=== PATIENT | female | born 1965 | race Caucasian/White ===

== ENCOUNTER → 2020-10-16 08:29 | Outpatient (CLI) | payer MEDICARE, MEDICAID, SELFPAY ==
--- NOTE | 2020-10-16 08:35 | CT_ITS ---
STUDY: CT MAXILLOFACIAL SINUSES REASON FOR EXAM: Female, 55 years old. SINUSITIS RADIATION DOSAGE (If Supplied By Facility): CTDIvol = ( 33.06 ) mGy, DLP = ( 800.79 ) mGycm TECHNIQUE: The patient was scanned in a multi detector CT scanner. High resolution axial imaging was performed without the administration of intravenous contrast material. Sagittal and coronal images were reconstructed. Individualized dose optimization techniques were used for this CT. COMPARISON: None. FINDINGS: FRONTAL SINUSES: Normal aeration, without mucosal inflammatory disease. ETHMOIDAL SINUSES: Minor mucosal thickening of the ethmoid air cells without air-fluid level. MAXILLARY SINUSES: Minor mucosal thickening in the right maxillary sinus without air-fluid level.. SPHENOIDAL SINUSES: Polypoid mucosal thickening in left sphenoid sinus without air-fluid level. There is patency of the bilateral maxillary infundibuli with normal uncinate processes, ethmoid bullae, and hiatus semilunaris. Normal bilateral middle turbinates. Normal bilateral inferior turbinates. Normal midline nasal septum. There is patency of the bilateral nasal airways. The visualized osseous structures are normal. The visualized bilateral orbital contents are normal. CT/Sinus/Facial Bone IMPRESSION: Minor right maxillary bilateral ethmoid and left sphenoid sinus disease without air-fluid levels likely chronic. Electronically Signed: Dustin Zayas MD at 22:57 EDT , Service support ,
== END ==
PROVIDERS: PCP Family Medicine; Referring Provider Otolaryngology Otolaryngology/Facial Plastic Surgery; Visit Provider Otolaryngology Otolaryngology/Facial Plastic Surgery
DX: J32.9 Chronic sinusitis, unspecified (principal)
CPT/HCPCS: 70486

== ENCOUNTER 2020-10-24 05:55 | Day surgery (SDC) | payer MEDICARE, MEDICAID, SELFPAY ==
[2017-07-23 12:04] VITALS: BMI 27.0
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
--- NOTE | 2020-10-24 | MISC_PTH ---
PATIENT: OMERO AKHTAR LOC: [facility] [place] U#:[id number] AGE/SX: 55/F ROOM: RE10/24/[address]: Dr. Mirtha Armstrong, MDDOB: 1965 BED: DIS: 10/24/2020 SPEC #: [id number] RECD: 10/24/20 13:37 STATUS: TATE SANDRA #: [id number] TAMMI: 10/24/20 00:[address]: Mirtha Armstrong DEPT: SURGICAL PATHOLOGY RECD BY: Anatoliy Fang ENTERED: 10/24/20 13:37 [facility]: Dr. Livan Kennedy MD Tissues: Labial gland, NOS Procedures: Surgery Specimen Level IV HEADER OPERATION: Labiaplasty PRE-OP DIAGNOSIS: Bilateral labial hypertrophy TISSUE SUBMITTED: Bilateral labia MICROSCOPIC DIAGNOSIS Bilateral labia, labiaplasty: Fragments of skin and underlying tissue with focal hyperkeratosis and mild chronic inflammation, clinically labial hypertrophy. SJ:breonna 10/25/2020 MICROSCOPIC DESCRIPTION Slides are reviewed. GROSS DESCRIPTION Received in fixative is one container labeled with the patient's name and designated bilateral labia. The specimen consists of three irregular fragments of light to dark deleon tissue with adherent reddish-deleon soft tissue. The fragments range in size from 1.5 to 7.5 cm. No mass lesions are identified. Art Preparator sections from all three fragments are submitted in three cassettes. / AM:breonna 10/24/20 TC:5 CPT: 87710
[2020-10-24 06:23] VITALS: BP 138/77; PULSE 77; RESP 18; TEMP 36.7; O2SAT 100; BMI 30.7
[2020-10-24] MEDS: Lactated Ringers 1,000 ML 100 ML IV (06:42)
[2020-10-24 06:54] LABS: Hematocrit 44.6 % (37-47); Hemoglobin 14.8 g/dL (12.0-15.0); Mean Corp Hgb Conc 33.2 g/dL (32-36); Mean Corpuscular Hgb 31.2 pg (27.0-32.0); Mean Corpuscular Volume 94.1 fL (81-99); Mean Platelet Vol. 9.9 fl (6.2-12.0); Platelet Count 286 K/mm3 (150-450); RBC Distribution Width CV 12.8 % (11.6-14.6); RBC Distribution Width SD 44.7 fl (35.1-43.9); Red Blood Count 4.74 M/mm3 (4.2-5.4); White Blood Count 8.9 K/mm3 (4.4-11.0)
[2020-10-24] MEDS: Lidocaine 1% /Epi 1:100 (50ml) 50 ML VIAL (07:55)
--- NOTE | 2020-10-24 08:02 | EX.PCM.DISCH ---
Discharge Instructions Diet Discharge Diet: No restrictions Activity Discharge Activity: May Shower May resume sexual activity in: 4-6 weeks Lifting Restrictions: 25 Additional Activity Instructions:: no intercourse until cleared at post op exam. no swimming and no bath tubs but you may shower. Dressing / Incision Call your doctor if your incision/area has: Continuous Slow Oozing, Sudden Increased Bleeding, Increased Pain/ Swelling, Increased Redness, Foul Smelling Discharge and Swelling at the incision site Call your doctor if you observe: Fever of 101 or Higher, Inability to urinate and Using more than 1 pad per hour Cleanse incision/area with: Soap & Water Additional Dressing/Incision Instructions:: let mild soap and water run over incision sites and dab dry. Follow Up Care Please Follow Up With: Mirtha Armstrong MD When: 2 weeks. call [phone] if you need an appointment. Test Results: Test results from this visit will be discussed in further detail at your follow-up appointment, if applicable. Discharge Plan Admission Primary Reason for Your Visit: labiaplasty Attending Provider: Mirtha Armstrong Primary Care Provider: Livan Kennedy Discharge Orders/Prescriptions Prescriptions: New oxycodone-acetaminophen [Percocet] 5-325 mg tablet 1 tab PO Q6H PRN (Reason: pain) 3 Days Qty: 7 RF: 0 No Action omeprazole 40 mg Capsule,Delayed Release(Dr/Ec) 40 mg PO DAILY RF: 0 magnesium 250 mg Tablet 250 mg PO DAILY RF: 0 loratadine [Claritin] 10 mg Tablet 10 mg PO DAILY RF: 0 cholecalciferol (vitamin D3) [Vitamin D3] 25 mcg (1,000 unit) Capsule 25 mcg PO DAILY RF: 0 Femring 0.1 mg/24 hr ring 1 vag ring VAGINAL .Q3MO RF: 0 [place] 3 Capsule 2,000 mg PO DAILY RF: 0 naproxen sodium [Aleve] 220 mg Capsule 220 mg PO DAILY RF: 0 Probiotic 3 billion cell Capsule 3,000 mmu cells PO DAILY RF: 0 Referrals / Follow Up: Livan Kennedy MD [Primary Care Provider] - Disposition Disposition (needs filled in before D/C Order can be placed): Home, Self Care
[2020-10-24 08:05] VITALS: BP 119/71; BP 138/77; PULSE 90; RESP 16; TEMP 36.7; O2SAT 99
--- NOTE | 2020-10-24 08:09 | OP.PCM_ITS ---
Problems Associated Problem List Diagnoses (1) Labial hypertrophy: Report of Operation Date of Procedure: 10/24/20 Pre-Operative Diagnosis: labial hypertrophy Post-Operative Diagnosis: same Surgery/Procedure Performed:: Bilateral labiaplasty Description of Surgical Findings:: Labia minora with hypertrophy beyond labia majora Surgeon: Mirtha Armstrong clinical pharmacologist: None Type of Anesthesia: Local and MAC Special Medications: 1% lidocaine with epinephrine Specimen's removed: bilateral labia minora Drains: none Estimated Blood Loss (mL): 10 Fluids Replaced: 700 Description of Procedure: After informed consent was obtained the patient was taken the operating room she was placed in the supine position. She was given anesthesia she was then prepped and draped in normal sterile fashion. Exam under anesthesia revealed that the labia minora extend well beyond the labia majora. At this time they were grasped with [place] and winged out. Marking pen was used to create my area of excision from the posterior fourchette to anterior aspect inferior to clitoral butler. . At this time lidocaine with epinephrine was injected. At this time curved Tejeda scissors were used cut the excess labia minora tissue. This was done first on the left side and it was sutured with 3-0 Rapide in a running fashion. This was then repeated on the patient's right side making sure that the labia appeared to be equal. Excellent hemostasis was appreciated. Instrument lap and needle count were correct x2. Procedure was deemed complete and successful.Tissue sent to pathology for evaluation. Grafts/Implants Used: none Procedure Start Time: 07:36 Procedure Stop Time: 07:54 Complications none Admit VTE Documentation VTE Present on Admission: Yes VTE Mechan Device Prophylaxis: SCD's VTE Pharm Prophylaxis ordered?: No
[2020-10-24 08:10] VITALS: BP 123/76; BP 138/77; PULSE 90; RESP 16; O2SAT 95
[2020-10-24 08:15] VITALS: BP 116/69; BP 138/77; PULSE 88; RESP 14; O2SAT 95
[2020-10-24 08:20] VITALS: BP 110/72; BP 138/77; PULSE 85; RESP 16; TEMP 36.8; O2SAT 95
[2020-10-24 09:14] VITALS: BP 138/77; BP 141/71; PULSE 88; RESP 18; TEMP 36.3; O2SAT 98
== END 2020-10-24 09:16 | disposition home or self-care (01) ==
LOC: SDC 05:56 → AC 05:58
PROVIDERS: PCP Family Medicine; Referring Provider Obstetrics & Gynecology; Visit Provider Obstetrics & Gynecology
PROC: (CPT 56620; principal; 2020-10-24 07:15)
DX: N90.60 Unspecified hypertrophy of vulva (principal); M19.90 Unspecified osteoarthritis, unspecified site; E11.9 Type 2 diabetes mellitus without complications; I10 Essential (primary) hypertension; E78.5 Hyperlipidemia, unspecified; J45.909 Unspecified asthma, uncomplicated; Z79.4 Long term (current) use of insulin; Z79.51 Long term (current) use of inhaled steroids; Z79.899 Other long term (current) drug therapy
CPT/HCPCS: 00906; 56620; 85027; 88305; J7120; J2405

== ENCOUNTER → 2020-11-22 13:00 | Outpatient (CLI) | payer MEDICARE, MEDICAID, SELFPAY ==
--- NOTE | 2020-11-22 13:01 | EKG12_ITS ---
Test Reason : PRE OP Blood Pressure : / mmHG Vent. Rate : 101 BPM Atrial Rate : 101 BPM P-R Int : 136 ms QRS Dur : 092 ms QT Int : 310 ms P-R-T Axes : 058 042 268 degrees QTc Int : 401 ms Sinus tachycardia Nonspecific ST and T wave abnormality Abnormal ECG Confirmed by JUAN DIEGO WHARTON, JACK ([id number]), news video editor RYDER PERERA ([id number]) on 11/25/2020 8:22:11 AM Referred By: Edin Hyman Confirmed By:JACK ADAMSON MD
== END ==
PROVIDERS: PCP Family Medicine; Referring Provider Otolaryngology; Visit Provider Otolaryngology
DX: Z01.818 Encounter for other preprocedural examination (principal)
CPT/HCPCS: 93005

== ENCOUNTER → 2020-11-25 12:15 | Outpatient (CLI) | payer MEDICARE, MEDICAID, SELFPAY ==
[2020-11-25 12:53] LABS: Hematocrit 43.3 % (37-47); Hemoglobin 14.1 g/dL (12.0-15.0); Mean Corp Hgb Conc 32.6 g/dL (32-36); Mean Corpuscular Hgb 30.5 pg (27.0-32.0); Mean Corpuscular Volume 93.7 fL (81-99); Mean Platelet Vol. 9.8 fl (6.2-12.0); Platelet Count 316 K/mm3 (150-450); RBC Distribution Width CV 12.5 % (11.6-14.6); Red Blood Count 4.62 M/mm3 (4.2-5.4); White Blood Count 7.2 K/mm3 (4.4-11.0)
[2020-11-25 13:12] LABS: Anion Gap 5 (5-15); BUN 11 mg/dL (7-18); BUN/Creat Ratio 16.7 RATIO (10-20); Calcium,Total 9.2 mg/dL (8.5-10.1); Chloride 103 mmol/L (98-107); Creatinine, Serum 0.66 mg/dL (0.55-1.02); EST Glomerular Filtration Rate 99 mL/min (>60); Est Glom Filt Rate - Afr Amer 120 mL/min (>60); Glucose 93 mg/dL (74-106); Potassium 4.4 mmol/L (3.5-5.1); Sodium Level 137 mmol/L (136-145)
== END ==
PROVIDERS: PCP Family Medicine; Referring Provider Otolaryngology; Visit Provider Otolaryngology
DX: Z01.812 Encounter for preprocedural laboratory examination (principal); Z20.822 Contact with and (suspected) exposure to COVID-19
CPT/HCPCS: 36415; 80048; 85027; 87635; U0005; U0003

== ENCOUNTER → 2020-11-26 | Outpatient (CLI) | payer MEDICARE, MEDICAID, SELFPAY ==
--- NOTE | 2020-11-26 08:00 | NASAL_PTH ---
PATIENT: OMERO AKHTAR [facility]: [facility] U#:[id number] AGE/SX: 55/F ROOM: RE11/26/[address]: Dr. Edin Hyman MD : 1965 BED: DIS: 11/26/2020 SPEC #: [id number] RECD: 11/26/20 14:58 STATUS: TATE REInge #: [id number] TAMMI: 11/26/20 08:[address]: Edin Hyman DEPT: SURGICAL PATHOLOGY RECD BY: Areli Tellez ENTERED: 11/27/20 09:23 SP TYPE: NASAL SPEC OTHR DR: Dr. Livan Kennedy MD [facility] Tissues: A - Nasal septum, NOS B - Nasal septum, NOS C - Nasal septum, NOS Procedures: Decalcification bone/plaque Surgery Specimen Level III HEADER OPERATION: Septoplasty, functional endoscopic sinus surgery, turbinate cautery, bilateral ethmoidectomy, bilateral maxillary antrostomy PRE-OP DIAGNOSIS: Nasal congestion, deviated septum, chronic sinusitis TISSUE SUBMITTED: A ? Septum, B ? Left sinus contents, C ? Right sinus contents MICROSCOPIC DIAGNOSIS A. Nasal septum, septoplasty: Fragments of benign cartilage (clinically deviated septum). B. Left sinus contents, curettings: Consistent with chronic sinusitis. Benign fragments of bone. C. Right sinus contents, curettings: Consistent with chronic sinusitis. Benign fragments of bone. AM:breonna 12/02/2020 MICROSCOPIC DESCRIPTION Slides are reviewed. GROSS DESCRIPTION A - Received in fixative is one container labeled with the patient's name and designated septum. The specimen consists of two pieces of cartilage and bone measuring in aggregate 1.5 x 1 x 0.3 cm. The entire specimen is submitted in one cassette after decalcification. B - Received in fixative is one container labeled with the patient's name and designated left sinus contents. The specimen consists of multiple irregular fragments of deleon soft tissue mixed with fragments of bone that in aggregate measure 1.5 x 1 x 0.2 cm. The specimen is totally submitted in one cassette after decalcification. C - Received in fixative is one container labeled with the patient's name and designated right sinus contents. The specimen consists of multiple irregular fragments of deleon soft tissue mixed with fragments of bone that in aggregate measure 1.5 x 1 x 0.3 cm. The specimen is totally submitted in one cassette after decalcification. / SJ:breonna 11/27/20 TC:3 CPT: 46130 x3, 53789 x3
== END | disposition home or self-care (01) ==
LOC: LABSPEC 16:36
PROVIDERS: PCP Family Medicine; Referring Provider Otolaryngology; Visit Provider Otolaryngology
DX: J34.2 Deviated nasal septum (principal); R09.81 Nasal congestion; J32.9 Chronic sinusitis, unspecified
CPT/HCPCS: 88304; 88311

== ENCOUNTER 2021-12-09 12:37 | Emergency (ER) | payer MEDICARE, MEDICAID, SELFPAY ==
[2021-12-09 12:38] VITALS: BP 196/95; PULSE 109; RESP 18; TEMP 36.5; O2SAT 96; BMI 31.1
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
[2021-12-09] MEDS: Ibuprofen 600 MG Tablet PO (13:22)
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
--- NOTE | 2021-12-09 14:27 | ED.RN ---
in waiting room being disrespectful and demanding.
[2021-12-09] MEDS: Ketorolac 15 MG/ML Vial IV (14:28)
== END 2021-12-09 14:33 | disposition home or self-care (01) ==
PROVIDERS: Emergency Provider Emergency Medicine; PCP Family Medicine; Visit Provider Emergency Medicine
DX: S80.01XA Contusion of right knee, initial encounter (principal); S29.019A Strain of muscle and tendon of unspecified wall of thorax, initial encounter; S16.1XXA Strain of muscle, fascia and tendon at neck level, initial encounter; V49.40XA Driver injured in collision with unspecified motor vehicles in traffic accident, initial encounter
CPT/HCPCS: 72125; 73564; 96374; 99284

== ENCOUNTER → 2022-11-02 | Outpatient (CLI) | payer MEDICARE, MEDICAID, SELFPAY ==
[2022-11-02 17:14] LABS: Absolute Lymphocyte Count 3.85 X10^3/uL (0.83-4.51); Absolute Neutrophil Count 3.5 X10^3/uL (2.0-7.7); Basophil# 0.02 X10^3/uL; Basophil% 0.2 % (0-1); Eosinophil# 0.16 X10^3/uL; Eosinophils% 1.9 % (0-5); Hematocrit 44.8 % (37-47); Hemoglobin 14.8 g/dL (12.0-15.0); Lymphocyte # 3.85 X10^3/ul (0.83-4.51); Lymphocyte % 46.4 % (19-41); Mean Corpuscular Hgb 30.8 pg (27.0-32.0); Mean Corpuscular Volume 93.3 fL (81-99); Monocyte# 0.71 X10^3/uL; Monocyte% 8.6 % (0-10); NRBC Flagged by Analyzer 0 % (0-5); Neutrophil # 3.53 X10^3/uL (2.7-7.7); Neutrophil % 42.7 % (47-70); Platelet Count 303 K/mm3 (150-450); RBC Distribution Width CV 12.3 % (11.6-14.6); RBC Distribution Width SD 42.7 fl (35.1-43.9); White Blood Count 8.3 K/mm3 (4.4-11.0)
[2022-11-02 17:50] LABS: ALB/GLOB Ratio 0.9 RATIO (0.9-2.4); AST(SGOT) 20 U/L (15-37); Alanine Aminotransfer ALT/SGPT 27 U/L (13-56); Albumin, Serum 3.8 g/dL (3.2-5.0); Alkaline Phosphatase 67 U/L (45-117); Anion Gap 6 (5-15); BUN 17 mg/dL (7-18); BUN/Creat Ratio 21.4 RATIO (10-20); Calcium,Total 9.2 mg/dL (8.5-10.1); Chloride 105 mmol/L (98-107); Cholesterol 231 mg/dL (200); EST Glomerular Filtration Rate 79 mL/min (>60); Est Glom Filt Rate - Afr Amer 96 mL/min (>60); Globulin 4.2 g/dL (2.2-4.2); Glucose 88 mg/dL (74-106); High Density Lipoprotein 60 mg/dL; Potassium 4.2 mmol/L (3.5-5.1); Sodium Level 139 mmol/L (136-145); Thyroid Stim Hormone (TSH) 2.33 uIU/mL (0.358-3.74); Triglycerides 224 mg/dL; Very Low Density Lipoprotein 45 mg/dL (5-40)
[2022-11-02 17:52] LABS: Hemoglobin A1c 5.4 % (3.8-5.6)
[2022-11-02 18:30] LABS: Hepatitis C Antibody Non-Reactive (Nonreactive); Vitamin D,25 Hydroxy 35.1 ng/mL
== END | disposition home or self-care (01) ==
PROVIDERS: PCP Family Medicine; Visit Provider Family Medicine Geriatric Medicine
DX: E55.9 Vitamin D deficiency, unspecified (principal); R53.83 Other fatigue
CPT/HCPCS: 36415; 80053; 80061; 82306; 83036; 84443; 85025; 86803

== ENCOUNTER → 2023-04-29 | Outpatient (CLI) | payer MEDICARE, SELFPAY ==
--- OUTSIDE RECORDS SUMMARY | 2023-04-29 15:34 | XMS RPT_ITS | CCD ---
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 year or 1 fall with injury or currently using an Ambulatory Assistive Device (Walker, Cane, Wheelchair, Crutches, etc.)? No PATIENT GENDER DATA: Female. status: : No status: NO. PATIENT RELEVANT IMPLANT DATA REVIEWED: Not Applicable RADIOLOGY DEPARTMENT: General X-ray: Exam(s) Completed: Lower Extremity X-Ray(s): Knee, AP / Lat / Tunne / Merchant Right and Wt. Bearing PERIPHERAL IV DATA: Not applicable SIGNED BY: RT Laly(R) June 27, 2021 1:48 PM documented in this encounter [facility] documented as of this encounter (statuses as of 06/25/2021) [facility] History of Past illness Narrative* Problem Noted Date Resolved Date UTI (lower urinary tract infection) 08/13/2014 09/30/2016 Lower urinary tract symptoms (LUTS) 08/13/2014 09/30/2016 Recurrent urinary tract infection 08/13/2014 09/30/2016 Recurrent kidney stones 08/13/2014 10/01/19 17 Fissure in ano 02/08/2013 09/30/2016 Pelvic cramping 05/18/2012 09/30/2016 Abdominal bloating 05/18/2012 09/30/2016 Cervicalgia 08/27/2010 09/30/2016 Headache(784.0) 08/27/2010 09/30/2016 Knee pain 08/27/2010 09/30/2016 Nonallopathic lesion of pelv ic region, not elsewhere classified 11/01/2008 09/30/2016 Acute cystitis 12/23/2006 09/30/2016 documented as of this encounter (statuses as of 06/27/2021) [facility] of Past illness Narrative* Problem Noted Date Resolved Date UTI (lower urinary tract infection) 08/13/2014 09/30/2016 Lower urinary tract symptoms (LUTS) 08/13/2014 09/30/2016 Recurrent urinary tract infection 08/13/2014 09/30/2016 Recurrent kidney stones 08/13/2014 10/01/19 17 Fissure in ano 02/08/2013 09/30/2016 Pelvic cramping 05/18/2012 09/30/2016 Abdominal bloating 05/18/2012 09/30/2016 Cervicalgia 08/27/2010 09/30/2016 Headache(784.0) 08/27/2010 09/30/2016 Knee pain 08/27/2010 09/30/2016 Nonallopathic lesion of pelv ic region, not elsewhere classified 11/01/2008 09/30/2016 Acute cystitis 12/23/2006 09/30/2016 documented as of this encounter (statuses as of 07/01/2021) [facility] of Past illness Narrative* Problem Noted Date Resolved Date UTI (lower urinary tract infection) 08/13/2014 09/30/2016 Lower urinary tract symptoms (LUTS) 08/13/2014 09/30/2016 Recurrent urinary tract infection 08/13/2014 09/30/2016 Recurrent kidney stones 08/13/2014 10/01/19 17 Fissure in ano 02/08/2013 09/30/2016 Pelvic cramping 05/18/2012 09/30/2016 Abdominal bloating 05/18/2012 09/30/2016 Cervicalgia 08/27/2010 09/30/2016 Headache(784.0) 08/27/2010 09/30/2016 Knee pain 08/27/2010 09/30/2016 Nonallopathic lesion of pelv ic region, not elsewhere classified 11/01/2008 09/30/2016 Acute cystitis 12/23/2006 09/30/2016 documented as of this encounter (statuses as of 06/28/2021) [facility] of [facility] illness Narrative* Problem Noted Date Resolved Date UTI (lower urinary tract infection) 08/13/2014 09/30/2016 Lower urinary tract symptoms (LUTS) 08/13/2014 09/30/2016 Recurrent urinary tract infection 08/13/2014 09/30/2016 Recurrent kidney stones 08/13/2014 10/01/19 17 Fissure in ano 02/08/2013 09/30/2016 Pelvic cramping 05/18/2012 09/30/2016 Abdominal bloating 05/18/2012 09/30/2016 Cervicalgia 08/27/2010 09/30/2016 Headache(784.0) 08/27/2010 09/30/2016 Knee pain 08/27/2010 09/30/2016 Nonallopathic lesion of pelv ic region, not elsewhere classified 11/01/2008 09/30/2016 Acute cystitis 12/23/2006 09/30/2016 documented as of this encounter (statuses as of 11/03/2021) [facility] of [facility] illness Narrative* Problem Noted Date Resolved Date UTI (lower urinary tract infection) 08/13/2014 09/30/2016 Lower urinary tract symptoms (LUTS) 08/13/2014 09/30/2016 Recurrent urinary tract infection 08/13/2014 09/30/2016 Recurrent kidney stones 08/13/2014 10/01/19 17 Fissure in ano 02/08/2013 09/30/2016 Pelvic cramping 05/18/2012 09/30/2016 Abdominal bloating 05/18/2012 09/30/2016 Cervicalgia 08/27/2010 09/30/2016 Headache(784.0) 08/27/2010 09/30/2016 Knee pain 08/27/2010 09/30/2016 Nonallopathic lesion of pelv ic region, not elsewhere classified 11/01/2008 09/30/2016 Acute cystitis 12/23/2006 09/30/2016 documented as of this encounter (statuses as of 11/04/2021) [facility] of Past illness Narrative* Problem Noted Date Resolved Date UTI (lower urinary tract infection) 08/13/2014 09/30/2016 Lower urinary tract symptoms (LUTS) 08/13/2014 09/30/2016 Recurrent urinary tract infection 08/13/2014 09/30/2016 Recurrent kidney stones 08/13/2014 10/01/19 17 Fissure in ano 02/08/2013 09/30/2016 Pelvic cramping 05/18/2012 09/30/2016 Abdominal bloating 05/18/2012 09/30/2016 Cervicalgia 08/27/2010 09/30/2016 Headache(784.0) 08/27/2010 09/30/2016 Knee pain 08/27/2010 09/30/2016 Nonallopathic lesion of pelv ic region, not elsewhere classified 11/01/2008 09/30/2016 Acute cystitis 12/23/2006 09/30/2016 documented as of this encounter (statuses as of 11/10/2021) [facility] of [facility] illness Narrative* Problem Noted Date Resolved Date UTI (lower urinary tract infection) 08/13/2014 09/30/2016 Lower urinary tract symptoms (LUTS) 08/13/2014 09/30/2016 Recurrent urinary tract infection 08/13/2014 09/30/2016 Recurrent kidney stones 08/13/2014 10/01/19 17 Fissure in ano 02/08/2013 09/30/2016 Pelvic cramping 05/18/2012 09/30/2016 Abdominal bloating 05/18/2012 09/30/2016 Cervicalgia 08/27/2010 09/30/2016 Headache(784.0) 08/27/2010 09/30/2016 Knee pain 08/27/2010 09/30/2016 Nonallopathic lesion of pelv ic region, not elsewhere classified 11/01/2008 09/30/2016 Acute cystitis 12/23/2006 09/30/2016 documented as of this encounter (statuses as of 12/10/2021) [facility] of Past illness Narrative* Problem Noted Date Resolved Date UTI (lower urinary tract infection) 08/13/2014 09/30/2016 Lower urinary tract symptoms (LUTS) 08/13/2014 09/30/2016 Recurrent urinary tract infection 08/13/2014 09/30/2016 Recurrent kidney stones 08/13/2014 10/01/19 17 Fissure in ano 02/08/2013 09/30/2016 Pelvic cramping 05/18/2012 09/30/2016 Abdominal bloating 05/18/2012 09/30/2016 Cervicalgia 08/27/2010 09/30/2016 Headache(784.0) 08/27/2010 09/30/2016 Knee pain 08/27/2010 09/30/2016 Nonallopathic lesion of pelv ic region, not elsewhere classified 11/01/2008 09/30/2016 Acute cystitis 12/23/2006 09/30/2016 documented as of this encounter (statuses as of 12/14/2021) [facility] of Past illness Narrative* Problem Noted Date Resolved Date UTI (lower urinary tract infection) 08/13/2014 09/30/2016 Lower urinary tract symptoms (LUTS) 08/13/2014 09/30/2016 Recurrent urinary tract infection 08/13/2014 09/30/2016 Recurrent kidney stones 08/13/2014 10/01/19 17 Fissure in ano 02/08/2013 09/30/2016 Pelvic cramping 05/18/2012 09/30/2016 Abdominal bloating 05/18/2012 09/30/2016 Cervicalgia 08/27/2010 09/30/2016 Headache(784.0) 08/27/2010 09/30/2016 Knee pain 08/27/2010 09/30/2016 Nonallopathic lesion of pelv ic region, not elsewhere classified 11/01/2008 09/30/2016 Acute cystitis 12/23/2006 09/30/2016 documented as of this encounter (statuses as of 12/15/2021) [facility] illness Narrative* Problem Noted Date Resolved Date UTI (lower urinary tract infection) 08/13/2014 09/30/2016 Lower urinary tract symptoms (LUTS) 08/13/2014 09/30/2016 Recurrent urinary tract infection 08/13/2014 09/30/2016 Recurrent kidney stones 08/13/2014 10/01/19 17 Fissure in ano 02/08/2013 09/30/2016 Pelvic cramping 05/18/2012 09/30/2016 Abdominal bloating 05/18/2012 09/30/2016 Cervicalgia 08/27/2010 09/30/2016 Headache(784.0) 08/27/2010 09/30/2016 Knee pain 08/27/2010 09/30/2016 Nonallopathic lesion of pelv ic region, not elsewhere classified 11/01/2008 09/30/2016 Acute cystitis 12/23/2006 09/30/2016 documented as of this encounter (statuses as of 12/18/2021) [facility] of [facility] illness Narrative* Problem Noted Date Resolved Date UTI (lower urinary tract infection) 08/13/2014 09/30/2016 Lower urinary tract symptoms (LUTS) 08/13/2014 09/30/2016 Recurrent urinary tract infection 08/13/2014 09/30/2016 Recurrent kidney stones 08/13/2014 10/01/19 17 Fissure in ano 02/08/2013 09/30/2016 Pelvic cramping 05/18/2012 09/30/2016 Abdominal bloating 05/18/2012 09/30/2016 Cervicalgia 08/27/2010 09/30/2016 Headache(784.0) 08/27/2010 09/30/2016 Knee pain 08/27/2010 09/30/2016 Nonallopathic lesion of pelv ic region, not elsewhere classified 11/01/2008 09/30/2016 Acute cystitis 12/23/2006 09/30/2016 documented as of this encounter (statuses as of 12/22/2021) [facility] of Past illness Narrative* Problem Noted Date Resolved Date UTI (lower urinary tract infection) 08/13/2014 09/30/2016 Lower urinary tract symptoms (LUTS) 08/13/2014 09/30/2016 Recurrent urinary tract infection 08/13/2014 09/30/2016 Recurrent kidney stones 08/13/2014 10/01/19 17 Fissure in ano 02/08/2013 09/30/2016 Pelvic cramping 05/18/2012 09/30/2016 Abdominal bloating 05/18/2012 09/30/2016 Cervicalgia 08/27/2010 09/30/2016 Headache(784.0) 08/27/2010 09/30/2016 Knee pain 08/27/2010 09/30/2016 Nonallopathic lesion of pelv ic region, not elsewhere classified 11/01/2008 09/30/2016 Acute cystitis 12/23/2006 09/30/2016 documented as of this encounter (statuses as of 12/26/2021) [facility] of Past illness Narrative* Problem Noted Date Resolved Date UTI (lower urinary tract infection) 08/13/2014 09/30/2016 Lower urinary tract symptoms (LUTS) 08/13/2014 09/30/2016 Recurrent urinary tract infection 08/13/2014 09/30/2016 Recurrent kidney stones 08/13/2014 10/01/19 17 Fissure in ano 02/08/2013 09/30/2016 Pelvic cramping 05/18/2012 09/30/2016 Abdominal bloating 05/18/2012 09/30/2016 Cervicalgia 08/27/2010 09/30/2016 Headache(784.0) 08/27/2010 09/30/2016 Knee pain 08/27/2010 09/30/2016 Nonallopathic lesion of pelv ic region, not elsewhere classified 11/01/2008 09/30/2016 Acute cystitis 12/23/2006 09/30/2016 documented as of this encounter (statuses as of 12/26/2021) [facility] illness Narrative* Problem Noted Date Resolved Date UTI (lower urinary tract infection) 08/13/2014 09/30/2016 Lower urinary tract symptoms (LUTS) 08/13/2014 09/30/2016 Recurrent urinary tract infection 08/13/2014 09/30/2016 Recurrent kidney stones 08/13/2014 10/01/19 17 Fissure in ano 02/08/2013 09/30/2016 Pelvic cramping 05/18/2012 09/30/2016 Abdominal bloating 05/18/2012 09/30/2016 Cervicalgia 08/27/2010 09/30/2016 Headache(784.0) 08/27/2010 09/30/2016 Knee pain 08/27/2010 09/30/2016 Nonallopathic lesion of pelv ic region, not elsewhere classified 11/01/2008 09/30/2016 Acute cystitis 12/23/2006 09/30/2016 documented as of this encounter (statuses as of 01/06/2022) [facility] illness Narrative* Problem Noted Date Resolved Date UTI (lower urinary tract infection) 08/13/2014 09/30/2016 Lower urinary tract symptoms (LUTS) 08/13/2014 09/30/2016 Recurrent urinary tract infection 08/13/2014 09/30/2016 Recurrent kidney stones 08/13/2014 10/01/19 17 Fissure in ano 02/08/2013 09/30/2016 Pelvic cramping 05/18/2012 09/30/2016 Abdominal bloating 05/18/2012 09/30/2016 Cervicalgia 08/27/2010 09/30/2016 Headache(784.0) 08/27/2010 09/30/2016 Knee pain 08/27/2010 09/30/2016 Nonallopathic lesion of pelv ic region, not elsewhere classified 11/01/2008 09/30/2016 Acute cystitis 12/23/2006 09/30/2016 documented as of this encounter (statuses as of 01/12/2022) [facility] of [facility] illness Narrative* Problem Noted Date Resolved Date UTI (lower urinary tract infection) 08/13/2014 09/30/2016 Lower urinary tract symptoms (LUTS) 08/13/2014 09/30/2016 Recurrent urinary tract infection 08/13/2014 09/30/2016 Recurrent kidney stones 08/13/2014 10/01/19 17 Fissure in ano 02/08/2013 09/30/2016 Pelvic cramping 05/18/2012 09/30/2016 Abdominal bloating 05/18/2012 09/30/2016 Cervicalgia 08/27/2010 09/30/2016 Headache(784.0) 08/27/2010 09/30/2016 Knee pain 08/27/2010 09/30/2016 Nonallopathic lesion of pelv ic region, not elsewhere classified 11/01/2008 09/30/2016 Acute cystitis 12/23/2006 09/30/2016 documented as of this encounter (statuses as of 01/19/2022) [facility] Narrative* Problem Noted Date Resolved Date UTI (lower urinary tract infection) 08/13/2014 09/30/2016 Lower urinary tract symptoms (LUTS) 08/13/2014 09/30/2016 Recurrent urinary tract infection 08/13/2014 09/30/2016 Recurrent kidney stones 08/13/2014 10/01/19 17 Fissure in ano 02/08/2013 09/30/2016 Pelvic cramping 05/18/2012 09/30/2016 Abdominal bloating 05/18/2012 09/30/2016 Cervicalgia 08/27/2010 09/30/2016 Headache(784.0) 08/27/2010 09/30/2016 Knee pain 08/27/2010 09/30/2016 Nonallopathic lesion of pelv ic region, not elsewhere classified 11/01/2008 09/30/2016 Acute cystitis 12/23/2006 09/30/2016 documented as of this encounter (statuses as of 01/20/2022) [facility] Narrative* Problem Noted Date Resolved Date UTI (lower urinary tract infection) 08/13/2014 09/30/2016 Lower urinary tract symptoms (LUTS) 08/13/2014 09/30/2016 Recurrent urinary tract infection 08/13/2014 09/30/2016 Recurrent kidney stones 08/13/2014 10/01/19 17 Fissure in ano 02/08/2013 09/30/2016 Pelvic cramping 05/18/2012 09/30/2016 Abdominal bloating 05/18/2012 09/30/2016 Cervicalgia 08/27/2010 09/30/2016 Headache(784.0) 08/27/2010 09/30/2016 Knee pain 08/27/2010 09/30/2016 Nonallopathic lesion of pelv ic region, not elsewhere classified 11/01/2008 09/30/2016 Acute cystitis 12/23/2006 09/30/2016 documented as of this encounter (statuses as of 01/27/2022) [facility] illness Narrative* Problem Noted Date Resolved Date UTI (lower urinary tract infection) 08/13/2014 09/30/2016 Lower urinary tract symptoms (LUTS) 08/13/2014 09/30/2016 Recurrent urinary tract infection 08/13/2014 09/30/2016 Recurrent kidney stones 08/13/2014 10/01/19 17 Fissure in ano 02/08/2013 09/30/2016 Pelvic cramping 05/18/2012 09/30/2016 Abdominal bloating 05/18/2012 09/30/2016 Cervicalgia 08/27/2010 09/30/2016 Headache(784.0) 08/27/2010 09/30/2016 Knee pain 08/27/2010 09/30/2016 Nonallopathic lesion of pelv ic region, not elsewhere classified 11/01/2008 09/30/2016 Acute cystitis 12/23/2006 09/30/2016 documented as of this encounter (statuses as of 01/28/2022) [facility] Narrative* Problem Noted Date Resolved Date UTI (lower urinary tract infection) 08/13/2014 09/30/2016 Lower urinary tract symptoms (LUTS) 08/13/2014 09/30/2016 Recurrent urinary tract infection 08/13/2014 09/30/2016 Recurrent kidney stones 08/13/2014 10/01/19 17 Fissure in ano 02/08/2013 09/30/2016 Pelvic cramping 05/18/2012 09/30/2016 Abdominal bloating 05/18/2012 09/30/2016 Cervicalgia 08/27/2010 09/30/2016 Headache(784.0) 08/27/2010 09/30/2016 Knee pain 08/27/2010 09/30/2016 Nonallopathic lesion of pelv ic region, not elsewhere classified 11/01/2008 09/30/2016 Acute cystitis 12/23/2006 09/30/2016 documented as of this encounter (statuses as of 01/30/2022) [facility] illness Narrative* Problem Noted Date Resolved Date UTI (lower urinary tract infection) 08/13/2014 09/30/2016 Lower urinary tract symptoms (LUTS) 08/13/2014 09/30/2016 Recurrent urinary tract infection 08/13/2014 09/30/2016 Recurrent kidney stones 08/13/2014 10/01/19 17 Fissure in ano 02/08/2013 09/30/2016 Pelvic cramping 05/18/2012 09/30/2016 Abdominal bloating 05/18/2012 09/30/2016 Cervicalgia 08/27/2010 09/30/2016 Headache(784.0) 08/27/2010 09/30/2016 Knee pain 08/27/2010 09/30/2016 Nonallopathic lesion of pelv ic region, not elsewhere classified 11/01/2008 09/30/2016 Acute cystitis 12/23/2006 09/30/2016 documented as of this encounter (statuses as of 02/06/2022) [facility] Narrative* Problem Noted Date Resolved Date UTI (lower urinary tract infection) 08/13/2014 09/30/2016 Lower urinary tract symptoms (LUTS) 08/13/2014 09/30/2016 Recurrent urinary tract infection 08/13/2014 09/30/2016 Recurrent kidney stones 08/13/2014 10/01/19 17 Fissure in ano 02/08/2013 09/30/2016 Pelvic cramping 05/18/2012 09/30/2016 Abdominal bloating 05/18/2012 09/30/2016 Cervicalgia 08/27/2010 09/30/2016 Headache(784.0) 08/27/2010 09/30/2016 Knee pain 08/27/2010 09/30/2016 Nonallopathic lesion of pelv ic region, not elsewhere classified 11/01/2008 09/30/2016 Acute cystitis 12/23/2006 09/30/2016 documented as of this encounter (statuses as of 02/11/2022) [facility] of Past illness Narrative* Problem Noted Date Resolved Date UTI (lower urinary tract infection) 08/13/2014 09/30/2016 Lower urinary tract symptoms (LUTS) 08/13/2014 09/30/2016 Recurrent urinary tract infection 08/13/2014 09/30/2016 Recurrent kidney stones 08/13/2014 10/01/19 17 Fissure in ano 02/08/2013 09/30/2016 Pelvic cramping 05/18/2012 09/30/2016 Abdominal bloating 05/18/2012 09/30/2016 Cervicalgia 08/27/2010 09/30/2016 Headache(784.0) 08/27/2010 09/30/2016 Knee pain 08/27/2010 09/30/2016 Nonallopathic lesion of pelv ic region, not elsewhere classified 11/01/2008 09/30/2016 Acute cystitis 12/23/2006 09/30/2016 documented as of this encounter (statuses as of 02/17/2022) [facility] History of Past illness Narrative* Problem Noted Date Resolved Date UTI (lower urinary tract infection) 08/13/2014 09/30/2016 Lower urinary tract symptoms (LUTS) 08/13/2014 09/30/2016 Recurrent urinary tract infection 08/13/2014 09/30/2016 Recurrent kidney stones 08/13/2014 10/01/19 17 Fissure in ano 02/08/2013 09/30/2016 Pelvic cramping 05/18/2012 09/30/2016 Abdominal bloating 05/18/2012 09/30/2016 Cervicalgia 08/27/2010 09/30/2016 Headache(784.0) 08/27/2010 09/30/2016 Knee pain 08/27/2010 09/30/2016 Nonallopathic lesion of pelv ic region, not elsewhere classified 11/01/2008 09/30/2016 Acute cystitis 12/23/2006 09/30/2016 documented as of this encounter (statuses as of 02/18/2022) [facility] History of Past illness Narrative* Problem Noted Date Resolved Date UTI (lower urinary tract infection) 08/13/2014 09/30/2016 Lower urinary tract symptoms (LUTS) 08/13/2014 09/30/2016 Recurrent urinary tract infection 08/13/2014 09/30/2016 Recurrent kidney stones 08/13/2014 10/01/19 17 Fissure in ano 02/08/2013 09/30/2016 Pelvic cramping 05/18/2012 09/30/2016 Abdominal bloating 05/18/2012 09/30/2016 Cervicalgia 08/27/2010 09/30/2016 Headache(784.0) 08/27/2010 09/30/2016 Knee pain 08/27/2010 09/30/2016 Nonallopathic lesion of pelv ic region, not elsewhere classified 11/01/2008 09/30/2016 Acute cystitis 12/23/2006 09/30/2016 documented as of this encounter (statuses as of 02/24/2022) [facility] History of Past illness Narrative* Problem Noted Date Resolved Date UTI (lower urinary tract infection) 08/13/2014 09/30/2016 Lower urinary tract symptoms (LUTS) 08/13/2014 09/30/2016 Recurrent urinary tract infection 08/13/2014 09/30/2016 Recurrent kidney stones 08/13/2014 10/01/19 17 Fissure in ano 02/08/2013 09/30/2016 Pelvic cramping 05/18/2012 09/30/2016 Abdominal bloating 05/18/2012 09/30/2016 Cervicalgia 08/27/2010 09/30/2016 Headache(784.0) 08/27/2010 09/30/2016 Knee pain 08/27/2010 09/30/2016 Nonallopathic lesion of pelv ic region, not elsewhere classified 11/01/2008 09/30/2016 Acute cystitis 12/23/2006 09/30/2016 documented as of this encounter (statuses as of 02/24/2022) [facility] History of Past illness Narrative* Problem Noted Date Resolved Date UTI (lower urinary tract infection) 08/13/2014 09/30/2016 Lower urinary tract symptoms (LUTS) 08/13/2014 09/30/2016 Recurrent urinary tract infection 08/13/2014 09/30/2016 Recurrent kidney stones 08/13/2014 10/01/19 17 Fissure in ano 02/08/2013 09/30/2016 Pelvic cramping 05/18/2012 09/30/2016 Abdominal bloating 05/18/2012 09/30/2016 Cervicalgia 08/27/2010 09/30/2016 Headache(784.0) 08/27/2010 09/30/2016 Knee pain 08/27/2010 09/30/2016 Nonallopathic lesion of pelv ic region, not elsewhere classified 11/01/2008 09/30/2016 Acute cystitis 12/23/2006 09/30/2016 documented as of this encounter (statuses as of 02/24/2022) [facility] History of Past illness Narrative* Problem Noted Date Resolved Date UTI (lower urinary tract infection) 08/13/2014 09/30/2016 Lower urinary tract symptoms (LUTS) 08/13/2014 09/30/2016 Recurrent urinary tract infection 08/13/2014 09/30/2016 Recurrent kidney stones 08/13/2014 10/01/19 17 Fissure in ano 02/08/2013 09/30/2016 Pelvic cramping 05/18/2012 09/30/2016 Abdominal bloating 05/18/2012 09/30/2016 Cervicalgia 08/27/2010 09/30/2016 Headache(784.0) 08/27/2010 09/30/2016 Knee pain 08/27/2010 09/30/2016 Nonallopathic lesion of pelv ic region, not elsewhere classified 11/01/2008 09/30/2016 Acute cystitis 12/23/2006 09/30/2016 documented as of this encounter (statuses as of 02/25/2022) [facility] History of Past illness Narrative* Problem Noted Date Resolved Date UTI (lower urinary tract infection) 08/13/2014 09/30/2016 Lower urinary tract symptoms (LUTS) 08/13/2014 09/30/2016 Recurrent urinary tract infection 08/13/2014 09/30/2016 Recurrent kidney stones 08/13/2014 10/01/19 17 Fissure in ano 02/08/2013 09/30/2016 Pelvic cramping 05/18/2012 09/30/2016 Abdominal bloating 05/18/2012 09/30/2016 Cervicalgia 08/27/2010 09/30/2016 Headache(784.0) 08/27/2010 09/30/2016 Knee pain 08/27/2010 09/30/2016 Nonallopathic lesion of pelv ic region, not elsewhere classified 11/01/2008 09/30/2016 Acute cystitis 12/23/2006 09/30/2016 documented as of this encounter (statuses as of 02/25/2022) [facility] History of Past illness Narrative* Problem Noted Date Resolved Date UTI (lower urinary tract infection) 08/13/2014 09/30/2016 Lower urinary tract symptoms (LUTS) 08/13/2014 09/30/2016 Recurrent urinary tract infection 08/13/2014 09/30/2016 Recurrent kidney stones 08/13/2014 10/01/19 17 Fissure in ano 02/08/2013 09/30/2016 Pelvic cramping 05/18/2012 09/30/2016 Abdominal bloating 05/18/2012 09/30/2016 Cervicalgia 08/27/2010 09/30/2016 Headache(784.0) 08/27/2010 09/30/2016 Knee pain 08/27/2010 09/30/2016 Nonallopathic lesion of pelv ic region, not elsewhere classified 11/01/2008 09/30/2016 Acute cystitis 12/23/2006 09/30/2016 documented as of this encounter (statuses as of 03/16/2022) [facility] History of Past illness Narrative* Problem Noted Date Resolved Date UTI (lower urinary tract infection) 08/13/2014 09/30/2016 Lower urinary tract symptoms (LUTS) 08/13/2014 09/30/2016 Recurrent urinary tract infection 08/13/2014 09/30/2016 Recurrent kidney stones 08/13/2014 10/01/19 17 Fissure in ano 02/08/2013 09/30/2016 Pelvic cramping 05/18/2012 09/30/2016 Abdominal bloating 05/18/2012 09/30/2016 Cervicalgia 08/27/2010 09/30/2016 Headache(784.0) 08/27/2010 09/30/2016 Knee pain 08/27/2010 09/30/2016 Nonallopathic lesion of pelv ic region, not elsewhere classified 11/01/2008 09/30/2016 Acute cystitis 12/23/2006 09/30/2016 documented as of this encounter (statuses as of 03/16/2022) [facility] History of Past illness Narrative* Problem Noted Date Resolved Date UTI (lower urinary tract infection) 08/13/2014 09/30/2016 Lower urinary tract symptoms (LUTS) 08/13/2014 09/30/2016 Recurrent urinary tract infection 08/13/2014 09/30/2016 Recurrent kidney stones 08/13/2014 10/01/19 17 Fissure in ano 02/08/2013 09/30/2016 Pelvic cramping 05/18/2012 09/30/2016 Abdominal bloating 05/18/2012 09/30/2016 Cervicalgia 08/27/2010 09/30/2016 Headache(784.0) 08/27/2010 09/30/2016 Knee pain 08/27/2010 09/30/2016 Nonallopathic lesion of pelv ic region, not elsewhere classified 11/01/2008 09/30/2016 Acute cystitis 12/23/2006 09/30/2016 documented as of this encounter (statuses as of 04/06/2022) [facility] History of Past illness Narrative* Problem Noted Date Resolved Date UTI (lower urinary tract infection) 08/13/2014 09/30/2016 Lower urinary tract symptoms (LUTS) 08/13/2014 09/30/2016 Recurrent urinary tract infection 08/13/2014 09/30/2016 Recurrent kidney stones 08/13/2014 10/01/19 17 Fissure in ano 02/08/2013 09/30/2016 Pelvic cramping 05/18/2012 09/30/2016 Abdominal bloating 05/18/2012 09/30/2016 Cervicalgia 08/27/2010 09/30/2016 Headache(784.0) 08/27/2010 09/30/2016 Knee pain 08/27/2010 09/30/2016 Nonallopathic lesion of pelv ic region, not elsewhere classified 11/01/2008 09/30/2016 Acute cystitis 12/23/2006 09/30/2016 documented as of this encounter (statuses as of 04/22/2022) [facility] History of Past illness Narrative* Problem Noted Date Resolved Date UTI (lower urinary tract infection) 08/13/2014 09/30/2016 Lower urinary tract symptoms (LUTS) 08/13/2014 09/30/2016 Recurrent urinary tract infection 08/13/2014 09/30/2016 Recurrent kidney stones 08/13/2014 10/01/19 17 Fissure in ano 02/08/2013 09/30/2016 Pelvic cramping 05/18/2012 09/30/2016 Abdominal bloating 05/18/2012 09/30/2016 Cervicalgia 08/27/2010 09/30/2016 Headache(784.0) 08/27/2010 09/30/2016 Knee pain 08/27/2010 09/30/2016 Nonallopathic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
== END | disposition home or self-care (01) ==
PROVIDERS: PCP Family Medicine; Referring Provider Otolaryngology Otolaryngology/Facial Plastic Surgery; Visit Provider Otolaryngology Otolaryngology/Facial Plastic Surgery
DX: J32.9 Chronic sinusitis, unspecified (principal)
CPT/HCPCS: 87070; 87205

== ENCOUNTER → 2023-12-15 | Outpatient (CLI) | payer MEDICARE, MEDICAID, SELFPAY ==
[2023-12-15 11:26] LABS: Absolute Neutrophil Count 3.2 X10^3/uL (2.0-7.7); Basophil# 0.03 X10^3/uL; Basophil% 0.5 % (0-1); Eosinophils% 3.1 % (0-5); Hematocrit 44.3 % (37-47); Hemoglobin 14.5 g/dL (12.0-15.0); Lymphocyte % 37.8 % (19-41); Mean Corp Hgb Conc 32.7 g/dL (32-36); Mean Corpuscular Hgb 30.8 pg (27.0-32.0); Mean Corpuscular Volume 94.1 fL (81-99); Mean Platelet Vol. 10.6 fl (6.2-12.0); Monocyte# 0.51 X10^3/uL; NRBC Flagged by Analyzer 0 % (0-5); Neutrophil # 3.18 X10^3/uL (2.7-7.7); Neutrophil % 50.1 % (47-70); Platelet Count 273 K/mm3 (150-450); RBC Distribution Width CV 12.3 % (11.6-14.6); Red Blood Count 4.71 M/mm3 (4.2-5.4); White Blood Count 6.4 K/mm3 (4.4-11.0)
[2023-12-15 12:02] LABS: AST(SGOT) 16 U/L (15-37); Alanine Aminotransfer ALT/SGPT 22 U/L (13-56); Albumin, Serum 3.7 g/dL (3.2-5.0); Alkaline Phosphatase 57 U/L (45-117); Anion Gap 7 (5-15); BUN 17 mg/dL (7-18); BUN/Creat Ratio 25.4 RATIO (10-20); Calcium,Total 9.2 mg/dL (8.5-10.1); Chloride 104 mmol/L (98-107); Cholesterol 224 mg/dL (200); Creatinine, Serum 0.67 mg/dL (0.55-1.02); EST Glomerular Filtration Rate 96 mL/min (>60); Est Glom Filt Rate - Afr Amer 117 mL/min (>60); Globulin 3.8 g/dL (2.2-4.2); Glucose 87 mg/dL (74-106); High Density Lipoprotein 68 mg/dL; Potassium 4.2 mmol/L (3.5-5.1); Protein, Total 7.5 g/dL (6.4-8.2); Sodium Level 137 mmol/L (136-145); Triglycerides 158 mg/dL; Very Low Density Lipoprotein 32 mg/dL (5-40)
== END | disposition home or self-care (01) ==
LOC: POLAB3 09:39
PROVIDERS: PCP Family Medicine Geriatric Medicine; Visit Provider Family Medicine Geriatric Medicine
DX: E78.5 Hyperlipidemia, unspecified (principal); R53.83 Other fatigue
CPT/HCPCS: 36415; 80053; 80061; 84443; 85025

== ENCOUNTER 2024-05-05 15:58 | Emergency (ER) | payer MEDICARE, MEDICAID, SELFPAY ==
[2024-05-05] VITALS (7 sets, daily range): BP systolic 126–189; BP diastolic 74–91; PULSE 93–136; RESP 12–22; TEMP 37.1–37.8; O2SAT 93–99; BMI 29.5
--- NOTE | 2024-05-05 16:01 | EKG12_ITS ---
Test Reason : CP Blood Pressure : */* mmHG Vent. Rate : 130 BPM Atrial Rate : 130 BPM P-R Int : 136 ms QRS Dur : 74 ms QT Int : 298 ms P-R-T Axes : 41 16 138 degrees QTcB Int : [address] & T wave abnormality, consider lateral ischemia Abnormal ECG Confirmed by JUAN DIEGO WHARTON, JACK ([id number]), editor map SEAN LUNDBERG ([id number]) on 05/08/2024 7:03:58 AM Referred By: AR/CURTIS Confirmed By: JACK ADAMSON MD
--- NOTE | 2024-05-05 17:45 | RAD_ITS ---
PROCEDURE: CHEST 1 VIEW (PORTABLE) REASON FOR EXAM: Chest pain TECHNIQUE: Frontal view of the chest. COMPARISON: None. FINDINGS: The heart size is normal. The mediastinal contour is unremarkable. The lungs are clear. The bones are unremarkable. RAD/Chest 1 View (Portable) IMPRESSION: No radiographic evidence of acute cardiopulmonary disease Reading Location: [facility]
--- NOTE | 2024-05-05 17:58 | EDS_ITS ---
HPI <SHANNAN Webster - Last Filed: 05/05/24 20:05> History of Present Illness Chief Complaint: Chest Pain Narrative Narrative: Patient is a 58-year-old female with no significant medical history who presents to the [facility] apartment with 24 hours of bodyaches, cough, fever, chills, nausea and vomiting. Patient denies any sick contacts. Patient states that this started last evening, over the day today, she states she cannot handle it anymore. She states that she cough so hard that she loses her breath. Patient states that her back hurts as well as her head and legs. Denies any blood in her stool or vomit. [facility] <SHANNAN Webster - Last Filed: 05/05/24 20:05> [facility] Medical History Anxiety Arthritis Back pain Balance problem Current cannabis vaping on some days Depression Fatigue Hay fever hx of rib removal Injury of head and neck Kidney stone Knee pain Leg cramps Migraines Neck pain Restless legs Stroke Home Medications ?Medication ?Instructions ?Recorded ?Last Taken ?Type cholecalciferol (vitamin D3) 25 25 mcg PO DAILY Unknown History mcg (1,000 unit) capsule (Vitamin D3) estradiol acetate 0.1 mg/24 hr 1 vag ring vaginal .Q3M O 10/17/20 Unknown History vaginal ring (Femring) lactobacillus combination no.4 3 3,000 mmu cells PO DA AJAY 10/17/20 Unknown History billion cell capsule (Probiotic) loratadine 10 mg tablet (Claritin) 10 mg PO DAILY 10/03 08/23 Unknown History magnesium 250 mg tablet 250 mg PO DAILY 10/17/20 Unk nown History naproxen sodium 220 mg capsule 220 mg PO DAILY 1 Unknown History (Aleve) omega-3 fatty acids 2,000 mg PO DAILY 10/17/20 U nknown History omeprazole 40 mg capsule,delayed 40 mg PO DAILY 10/24/20 05:30 History release oxycodone-acetaminophen 5 mg-325 1 tab PO Q6H PRN pain 3 days #7 10/24/20 Unkno wn Rx mg tablet (Percocet) tabs ondansetron 4 mg disintegrating 4 mg PO Q6H PRN nausea and 05/05/24 Unknown Rx tablet vomiting #20 tabs oseltamivir 75 mg capsule (Tamiflu) 75 mg PO BID 5 day s #10 caps 05/05/24 Unknown Rx Allergy/AdvReac Type Severity Reaction Status Date / Time meperidine HCl (From Demerol) Allergy Vomiting Verified 05/05/24 17:46 propoxyphene napsylate (From Allergy Vomiting Verified 05/05/24 17:46 Darvocet-N 100) Family History (Updated 07/23/17 @ 12:09 by Arielle Lozoya) Other CVA (cerebral vascular accident) Cancer Surgical History Hx of hysterectomy Hx of hernia repair Hx of section Social History Smoking Status: Never smoker alcohol intake: current alcohol intake frequency: a few times a month Alcohol type: wine ROS <SHANNAN Webster - Last Filed: 05/05/24 20:05> ROS ED ROS Narrative Constitutional: Negative for weight loss. Positive for fever, chills, weakness Eyes: Negative for vision loss, vision change, double vision ENT: Negative for any sore throat, ear pain, congestion Cardiovascular: Negative for any chest pain, tightness, palpitations Respiratory: Negative for any sputum production, hemoptysis, dyspnea on exertion, orthopnea. Positive for cough, dyspnea Gastrointestinal: Negative for any abdominal pain, nausea, vomiting, diarrhea, c onstipation, blood in stool, blood in vomit : Negative for any urinary frequency, dysuria, retention, blood in urine Muscle skeletal: Negative for any neck pain. Positive for back pain Neurological: Negative for any headache, syncope. Positive for dizziness Skin: Negative for any rashes, itching, abrasions, lacerations Psychiatric: Negative for any depression, anxiety, stress, suicidal ideation, homicidal ideation Hematologic: Negative for any excessive bruising, easy bleeding EXAM <SHANNAN Webster - Last Filed: 05/05/24 20:05> Physical Exam Narrative Exam Narrative: Vital signs reviewed. Patient is tachycardic, I performed her oral temperature, it was 100.1. HEET: Head normocephalic atraumatic, TMs clear bilaterally. Posterior pharynx is clear, moist mucous membranes. Nares clear bilaterally. Neck: Supple with no lymphadenopathy or tenderness. No signs of meningismus. Cardiac: Tachycardic rate no murmurs gallops or rubs, equal peripheral pulses bilaterally. Respiratory: Lungs diminished in the bases. No chest tenderness. Abdomen: Soft, nontender, nondistended. No abdominal bruit or pulsatile masses. No hepatosplenomegaly Extremities: No peripheral edema, no signs of gross trauma or deformity. Active full range of motion of all extremities. Neuro: Cranial nerves II through XII intact, no focal neurological deficits. Skin: Clean dry and intact with no rash, purpura, petechiae, vesicles or pustules. Backs/flank: No CVA tenderness, no midline spinal tenderness, no deformity. Psych: Normal mood and affect. No SI, HI or acute psychosis. Const Vital Signs: 05/05/24 15:59 05/05/24 17:43 05/05/24 17:43 Temperature 98.7 F Temperature Source Temporal Pulse Rate 127 H 136 H Respiratory Rate 22 H 12 Respiratory Effort Blood Pressure 149/84 H 189/89 H Blood Pressure Mean 105 122 Pulse Ox 97 99 Oxygen Delivery Method Room Air Room Air 05/05/24 17:45 05/05/24 18:00 05/05/24 18:12 Temperature 100.1 F H Temperature Source Oral Pulse Rate 112 H Respiratory Rate 22 H Respiratory Effort Normal Non-Labored Blood Pressure 153/91 H Blood Pressure Mean 107 Pulse Ox 95 Oxygen Delivery Method 05/05/24 19:00 05/05/24 19:35 Temperature Temperature Source Pulse Rate 98 93 Respiratory Rate 20 H 18 Respiratory Effort Blood Pressure 128/76 H 126/74 H Blood Pressure Mean 92 91 Pulse Ox 93 94 Oxygen Delivery Method Room Air Positive well nourished and well developed General Appearance ED: well developed <Joseph Deluca MD - Last Filed: 05/05/24 20:14> Physical Exam Const Vital Signs: 05/05/24 15:59 05/05/24 17:43 05/05/24 17:43 Temperature 98.7 F Temperature Source Temporal Pulse Rate 127 H 136 H Respiratory Rate 22 H 12 Respiratory Effort Blood Pressure 149/84 H 189/89 H Blood Pressure Mean 105 122 Pulse Ox 97 99 Oxygen Delivery Method Room Air Room Air 05/05/24 17:45 05/05/24 18:00 05/05/24 18:12 Temperature 100.1 F H Temperature Source Oral Pulse Rate 112 H Respiratory Rate 22 H Respiratory Effort Normal Non-Labored Blood Pressure 153/91 H Blood Pressure Mean 107 Pulse Ox 95 Oxygen Delivery Method 05/05/24 19:00 05/05/24 19:35 Temperature Temperature Source Pulse Rate 98 93 Respiratory Rate 20 H 18 Respiratory Effort Blood Pressure 128/76 H 126/74 H Blood Pressure Mean 92 91 Pulse Ox 93 94 Oxygen Delivery Method Room Air [facility] <SHANNAN Webster - Last Filed: 05/05/24 20:05> [facility] Lab Data Labs: Laboratory Results - last 24 hr 05/05/24 17:35 WBC 7.0 RBC 5.03 Hgb 15.8 H Hct 46.0 MCV 91.5 MCH 31.4 MCHC 34.3 RDW Std Deviation 43.6 RDW Coeff of Lacy 13.0 Plt Count 243 MPV 10.2 Immature Gran % (Auto) 0.300 Neut % (Auto) 71.9 H Lymph % (Auto) 11.2 L [place] % (Auto) 16.2 H Eos % (Auto) 0.3 Baso % (Auto) 0.1 Absolute Neuts (auto) 5.0 Absolute Lymphs (auto) 0.78 L Nucleated RBC % 0 Sodium 132 L Potassium 3.5 Chloride 100 Carbon Dioxide 25.0 Anion Gap 8 BUN 9 Creatinine 0.76 Estim Creat Clear Calc 84.53 Est GFR (MDRD) Af Amer 100 Est GFR (MDRD) Non-Af 82 BUN/Creatinine Ratio 11.8 Glucose 105 Calcium 9.6 Total Bilirubin 0.60 Direct Bilirubin 0.14 AST 18 ALT 19 Alkaline Phosphatase 66 Troponin I High Sens < 3 L Total Protein 9.0 H Albumin 4.2 Globulin 4.8 H Lipase 25 Radiography Diagnostic Testing: Clinical Impression(s) from Imaging Studies Chest X-Ray 05/05/24 17:45 IMPRESSION: No radiographic evidence of acute cardiopulmonary disease Reading Location: [facility] EKG EKG shows sinus tachycardia: Attestation: I personally reviewed and interpreted this EKG as follows: Interpretation: Sinus Rhythm Comments: Sinus tachycardia, rate 130 bpm, [place] interval 136 ms, QRS duration 74 ms, no acute ST elevation, no acute infarct noted. Treatment and Re-Evaluation :: Differential diagnosis includes however is not limited to: COVID-19, influenza, RSV, community-acquired pneumonia, ACS, SC Patient is tachycardic, patient is febrile, however does not look toxic. Alert and orient x 4. Patient is tearful and anxious. Presenting to the emergency department for 24 hours of cough, congestion, body aches, fever and chills. I have low suspicion for any acute ACS or SC, patient will receive a troponin, EKG showed tachycardia however was mostly unremarkable. Patient received IV fluids, basic laboratory values including a rapid COVID-19 influenza RSV swab. Two-view chest x-ray will be ordered. Patient given IV Toradol, oral Tylenol. All radiologic examinations were read, reviewed by the emergency department atten ding. From these reads, a plan of care will be put in place. Patient reevaluation had a normal heart rate of 93. Patient responded well to IV fluids. Chest x-ray was negative for any acute process. Patient CBC was unremarkable, chemistry shows slight hyponatremia at 132, troponin was less than 3. Lipase was negative. Patient's COVID-19 influenza RSV was positive for influenza A, does explain all the patient's symptoms. Patient given Tamiflu, Zofran, given her first dose here. She is instructed to maintain her hydration, was given strict return precautions return for any worsening symptoms, stable for discharge. <Joseph Deluca MD - Last Filed: 05/05/24 20:14> [facility] MDM Narrative Medical decision making narrative: Dr. Deluca: I have personally performed a face to face assessment of the patient and have reviewed the NAYLA Note. I performed a substantive portion of the visit including all aspects of the following. My lindquist findings include: History is feeling sick since this afternoon at around 2 PM. Body aches, fever, 5-year-old daughter also sick. Exam is positive for fever. Nontoxic-appearing. Sleeping but easily awakened. Medical Decision Making: Check labs. Check EKG. Check respiratory swabs. Symptomatic treatment. Prescriptions written for Tamiflu and for Zofran. Discharge. Other additions or changes: [None] History & Record Review Discussion w/independent historian: Patient Lab Data Attestation: I reviewed the patient's lab results. Labs: Laboratory Results - last 24 hr 05/05/24 17:35 WBC 7.0 RBC 5.03 Hgb 15.8 H Hct 46.0 MCV 91.5 MCH 31.4 MCHC 34.3 RDW Std Deviation 43.6 RDW Coeff of Lacy 13.0 Plt Count 243 MPV 10.2 Immature Gran % (Auto) 0.300 Neut % (Auto) 71.9 H Lymph % (Auto) 11.2 L [place] % (Auto) 16.2 H Eos % (Auto) 0.3 Baso % (Auto) 0.1 Absolute Neuts (auto) 5.0 Absolute Lymphs (auto) 0.78 L Nucleated RBC % 0 Sodium 132 L Potassium 3.5 Chloride 100 Carbon Dioxide 25.0 Anion Gap 8 BUN 9 Creatinine 0.76 Estim Creat Clear Calc 84.53 Est GFR (MDRD) Af Amer 100 Est GFR (MDRD) Non-Af 82 BUN/Creatinine Ratio 11.8 Glucose 105 Calcium 9.6 Total Bilirubin 0.60 Direct Bilirubin 0.14 AST 18 ALT 19 Alkaline Phosphatase 66 Troponin I High Sens < 3 L Total Protein 9.0 H Albumin 4.2 Globulin 4.8 H Lipase 25 Radiography Diagnostic Testing: Clinical Impression(s) from Imaging Studies Chest X-Ray 05/05/24 17:45 IMPRESSION: No radiographic evidence of acute cardiopulmonary disease Reading Location: [facility] Discharge Plan Triage Chief Complaint: Chest Pain ED Midlevel Provider: Cipriano Godoy ED Provider: Joseph Deluca Dx/Rx/DC Orders Clinical Impression: Influenza A Instructions: ED Influenza (Adult) Prescriptions: New oseltamivir [Tamiflu] 75 mg capsule 75 mg PO BID 5 Days Qty: 10 0RF ondansetron 4 mg tablet,disintegrating 4 mg PO Q6H PRN (Reason: nausea and vomiting) Qty: 20 0RF No Action omeprazole 40 mg Capsule,Delayed Release(Dr/Ec) 40 mg PO DAILY magnesium 250 mg Tablet 250 mg PO DAILY loratadine [Claritin] 10 mg Tablet 10 mg PO DAILY cholecalciferol (vitamin D3) [Vitamin D3] 25 mcg (1,000 unit) Capsule 25 mcg PO DAILY Femring 0.1 mg/24 hr ring 1 vag ring VAGINAL .Q3MO Patient Comments: USE 1 DEVICE VAGINALLY EVERY 3 MONTHS. [place] 3 Capsule 2,000 mg PO DAILY naproxen sodium [Aleve] 220 mg Capsule 220 mg PO DAILY Probiotic 3 billion cell Capsule 3,000 mmu cells PO DAILY oxycodone-acetaminophen [Percocet] 5-325 mg tablet 1 tab PO Q6H PRN (Reason: pain) 3 Days Qty: 7 0RF Primary Care Provider: Myke Arriola Chi Referrals: Myke Arriola Chi, MD [Primary Care Provider] - 1 Week if not improving Activity Restrictions/Additional Instructions: Please advance her diet as tolerated. Ensure that you increase your hydration, continue take Tylenol, ibuprofen for your headache, body aches and fever Print Language: Nepali Disposition Disposition: Home, Self Care
[2024-05-05] MEDS: 0.9% Normal Saline (1000mL) 1,000 ML 999 ML IV (18:01)
[2024-05-05] MEDS: Ondansetron 4 MG/2 ML Vial IV (18:03)
[2024-05-05] MEDS: Ketorolac 15 MG/ML Vial IV (18:03)
[2024-05-05] MEDS: Acetaminophen 500 MG Tablet 1000 MG PO (18:03)
[2024-05-05 18:07] LABS: Absolute Lymphocyte Count 0.78 X10^3/uL (0.83-4.51); Basophil# 0.01 X10^3/uL; Basophil% 0.1 % (0-1); Eosinophil# 0.02 X10^3/uL; Eosinophils% 0.3 % (0-5); Hemoglobin 15.8 g/dL (12.0-15.0); Lymphocyte # 0.78 X10^3/ul (0.83-4.51); Lymphocyte % 11.2 % (19-41); Mean Corp Hgb Conc 34.3 g/dL (32-36); Mean Corpuscular Hgb 31.4 pg (27.0-32.0); Mean Corpuscular Volume 91.5 fL (81-99); Mean Platelet Vol. 10.2 fl (6.2-12.0); Monocyte# 1.13 X10^3/uL; Monocyte% 16.2 % (0-10); NRBC Flagged by Analyzer 0 % (0-5); Neutrophil # 5.01 X10^3/uL (2.7-7.7); Neutrophil % 71.9 % (47-70); Platelet Count 243 K/mm3 (150-450); RBC Distribution Width SD 43.6 fl (35.1-43.9); Red Blood Count 5.03 M/mm3 (4.2-5.4)
[2024-05-05 18:36] LABS: AST(SGOT) 18 U/L (15-37); Alanine Aminotransfer ALT/SGPT 19 U/L (13-56); Albumin, Serum 4.2 g/dL (3.2-5.0); Alkaline Phosphatase 66 U/L (45-117); Anion Gap 8 (5-15); BUN 9 mg/dL (7-18); BUN/Creat Ratio 11.8 RATIO (10-20); Bilirubin, Direct 0.14 mg/dL (0.00-0.30); Calcium,Total 9.6 mg/dL (8.5-10.1); Chloride 100 mmol/L (98-107); Creatinine, Serum 0.76 mg/dL (0.55-1.02); EST Glomerular Filtration Rate 82 mL/min (>60); Est Glom Filt Rate - Afr Amer 100 mL/min (>60); Estimated Creatinine Clearance 84.53 ml/min; Globulin 4.8 g/dL (2.2-4.2); Glucose 105 mg/dL (74-106); Lipase 25 U/L (13-75); Potassium 3.5 mmol/L (3.5-5.1); Sodium Level 132 mmol/L (136-145); Troponin-I HS < 3 pg/mL (3.0-54.0)
[2024-05-05] MEDS: Oseltamivir Phosphate 75 MG Capsule PO (19:53)
== END 2024-05-05 20:18 | disposition home or self-care (01) ==
PROVIDERS: Emergency Provider Emergency Medicine; PCP Family Medicine Geriatric Medicine; Visit Provider Emergency Medicine
DX: J10.1 Influenza due to other identified influenza virus with other respiratory manifestations (principal); R11.2 Nausea with vomiting, unspecified
CPT/HCPCS: 71045; 80048; 80076; 83690; 84484; 85025; 87631; 93005; 96361; 96374; 96375; 99283; A4216; J2405

== ENCOUNTER → 2025-03-15 | Outpatient (CLI) | payer MEDICARE, MEDICAID, SELFPAY ==
[2025-03-15 11:21] LABS: Hematocrit 42.8 % (37-47); Hemoglobin 14.1 g/dL (12.0-15.0); Immature Granulocytes Count 0.020 X10^3/uL (0.0-0.0); Mean Corp Hgb Conc 32.9 g/dL (32-36); Mean Corpuscular Volume 94.1 fL (81-99); Mean Platelet Vol. 10.2 fl (6.2-12.0); NRBC Flagged by Analyzer 0 % (0-5); Platelet Count 276 K/mm3 (150-450); RBC Distribution Width CV 12.9 % (11.6-14.6); RBC Distribution Width SD 44.3 fl (35.1-43.9); Red Blood Count 4.55 M/mm3 (4.2-5.4); White Blood Count 7.4 K/mm3 (4.4-11.0)
[2025-03-15 12:09] LABS: AST(SGOT) 19 U/L (<=31); Alanine Aminotransfer ALT/SGPT 13 U/L (<=34); Albumin, Serum 4.0 g/dL (3.5-5.0); Alkaline Phosphatase 54 U/L (35-104); Anion Gap 11 (5-15); BUN 16 mg/dL (4-19); BUN/Creat Ratio 24.3 RATIO (10-20); Calcium,Total 9.0 mg/dL (7.6-11.0); Carbon Dioxide 26.1 mmol/L (21.0-32.0); Chloride 103 mmol/L (98-108); Globulin 2.9 g/dL (2.2-4.2); Glucose 91 mg/dL (70-99); Potassium 4.2 mmol/L (3.3-5.1)
[2025-03-15 12:11] LABS: Vitamin D,25 Hydroxy 25.7 ng/mL (30-100)
[2025-03-15 18:50] LABS: Xtra Tube Kwok EXTRA TUBE
== END | disposition home or self-care (01) ==
LOC: POLAB3 10:49
PROVIDERS: PCP Family Medicine Geriatric Medicine; Visit Provider Family Medicine Geriatric Medicine
DX: J32.9 Chronic sinusitis, unspecified (principal); R06.2 Wheezing; E03.9 Hypothyroidism, unspecified; E55.9 Vitamin D deficiency, unspecified; R53.83 Other fatigue
CPT/HCPCS: 36415; 80053; 82306; 84443; 85025; 87631

== ENCOUNTER 2025-03-16 12:03 | Outpatient (CLI) | payer MEDICARE, MEDICAID, SELFPAY ==
[2025-03-16 12:15] VITALS: BP 132/66; PULSE 100; RESP 16; TEMP 35.9; O2SAT 100; BMI 29.2
[2025-03-16] MEDS: 0.9% NaCl Peripheral Flush Adult IV (12:27)
[2025-03-16] MEDS: 0.9% Normal Saline (1000mL) 1,000 ML 999 ML IV ×2 (12:27→13:27)
[2025-03-16 14:39] VITALS: BP 134/73; PULSE 83; RESP 16; TEMP 36; O2SAT 100
== END 2025-03-16 23:59 | disposition home or self-care (01) ==
LOC: MEDOUTP 12:06
PROVIDERS: PCP Family Medicine Geriatric Medicine; Referring Provider Family Medicine Geriatric Medicine; Visit Provider Family Medicine Geriatric Medicine
DX: E86.0 Dehydration (principal)
CPT/HCPCS: 96360; 96361; A4216